=== PATIENT | female | born 1985 | race Caucasian/White ===

== ENCOUNTER 2017-11-23 21:39 | Emergency (ER) | payer OTHER ==
--- NOTE | 2017-11-23 23:59 | ER Document Report ---
HPI - HPI Patient complains to provider of: Head injury Onset: This afternoon Onset/Duration: Sudden Pain Level: Denies Context: Patient states she was at work this evening and another employee accidentally hit the back of her head with a box that caused her to hit her forehead on a corner of a container while at work. Patient denies any loss of consciousness, nausea or vomiting. Patient with raised, bruised area to left side of forehead. Patient states her employer wanted her to be evaluated. Patient presently denies any headache. Associated Symptoms: denies: Headache, Vomiting Exacerbated by: Denies Relieved by: Denies Similar symptoms previously: No Recently seen / treated by doctor: No - ROS ROS below otherwise negative: Yes Systems Reviewed and Negative: Yes All other systems reviewed and negative - NEURO Neurology: DENIES: Headache, Vision blurred, Dizzinesss / Vertigo - GASTROINTESTINAL Gastrointestinal: DENIES: Nausea, Patient vomiting - REPRODUCTIVE LMP: na - MUSCULOSKELETAL Musculoskeletal: DENIES: Back Pain, Neck Pain - DERM Skin Color: Ecchymosis Skin Problems: None Past Medical History - General Information source: Patient - Social History Smoking Status: Never Smoker Frequency of alcohol use: None Drug Abuse: None Occupation: [employer] Family History: Reviewed & Not Pertinent Psychiatric Medical History: Reports: Hx Anxiety Surgical Hx: Negative Vertical Provider Document - CONSTITUTIONAL Agree With Documented VS: Yes Exam Limitations: No Limitations General Appearance: WD/WN, No Apparent Distress - INFECTION CONTROL TRAVEL OUTSIDE OF THE [place] IN LAST 30 DAYS: No - HEENT HEENT: Normal ENT Exam, Normocephalic, PERRLA Notes: Patient with ecchymosis to left side of forehead. Extraocular movements intact , no raccoon or putnam sign, no hemotympanum. - NECK Neck: Normal Inspection, Supple, Other - No midline tenderness, step-off or deformity - RESPIRATORY Respiratory: Breath Sounds Normal, No Respiratory Distress - CARDIOVASCULAR Cardiovascular: Regular Rate, Regular Rhythm, No Murmur - BACK Back: Normal Inspection - MUSCULOSKELETAL/EXTREMETIES Musculoskeletal/Extremeties: MAEW, FROM, Non-Tender - NEURO Level of Consciousness: Awake, Alert, Appropriate Motor/Sensory: No Motor Deficit, No Sensory Deficit Notes: Cranial nerves II through XII intact - DERM Integumentary: Warm, Dry Course - Re-evaluation Re-evalutation: 11/23/17 23:58 Patient without any focal neurologic deficit. Patient without any severe mechanism of injury. Patient agreeable with deferring any CT imaging at this time. Discussed postconcussive symptoms that patient should be aware of. Patient verbalized understanding agrees with plan of care. - Vital Signs Vital signs: Temp Pulse Resp BP Pulse Ox 98.5 F 81 18 123/82 100 11/23/17 22:05 11/23/17 22:05 11/23/17 22:05 11/23/17 22:05 11/23/17 22:05 Discharge - Discharge Clinical Impression: Head injury Qualifiers: Encounter type: initial encounter Qualified Code(s): S09.90XA - Unspecified injury of head, initial encounter Facial contusion Qualifiers: Encounter type: initial encounter Qualified Code(s): S00.83XA - Contusion of other part of head, initial encounter Condition: Stable Disposition: HOME, SELF-CARE Instructions: Acetaminophen, Head Injury Precautions ([facility]) Additional Instructions: Return immediately for any new or worsening symptoms Followup with your primary care provider, call tomorrow to make a followup appointment Referrals: WILDA HANSON MD [ACTIVE STAFF] - Follow up as needed
[2017-11-24 00:16] VITALS: BP 120/62
== END 2017-11-24 00:23 | disposition home or self-care (01) ==
LOC: ER 21:39
DX: S00.83XA Contusion of other part of head, initial encounter (principal); W50.0XXA Accidental hit or strike by another person, initial encounter; Y99.0 Civilian activity done for income or pay
CPT/HCPCS: 99283